=== PATIENT | female | born 1965 | race Hispanic/Latino ===

== ENCOUNTER 2016-10-23 11:44 | Emergency (ER) | payer MEDICARE ==
[2016-10-23 13:01] LABS: Bacteria,Urine 1+ /HPF (Negative); Bilirubin,Urine NEG (Negative); Blood,Urine NEG (Negative); Ketones,Urine NEG (Negative); Leukocyte Esterase,Urine NEG (Negative); Mucus,Urine FEW /HPF; Nitrite,Urine NEG (Negative); Protein,Urine <15 mg/dL mg/dL (Negative); Urobilinogen,Urine < 2.0 mg/dL (<2.0)
[2016-10-23 13:13] LABS: Anion Gap 19 mmol/L; BUN/Creatinine Ratio 21.42; Blood Urea Nitrogen 15 mg/dL (7-17); Calcium 9.6 mg/dL (8.4-10.2); Carbon Dioxide 26 mmol/L (22-30); Chloride 103.6 mmol/L (98-107); Glucose 93 mg/dL (65-100); Potassium 4.1 mmol/L (3.6-5.0); Sodium 144 mmol/L (137-145)
[2016-10-23 13:22] LABS: Basophils % (Auto) 0.6 % (0.0-1.8); Eosinophils % (Auto) 0.7 % (0.0-4.3); Hematocrit 49.6 % (30.3-42.9); Hemoglobin 16.1 gm/dl (10.1-14.3); Mean Corpuscular HGB Conc 33 % (30-34); Mean Corpuscular Hemoglobin 30 pg (28-32); Mean Corpuscular Volume 92 fl (79-97); Platelet Count 217 K/mm3 (140-440); Red Blood Count 5.39 M/mm3 (3.65-5.03); Red Cell Distribution Width 13.8 % (13.2-15.2); White Blood Count 9.4 K/mm3 (4.5-11.0)
[2016-10-23] MEDS ORDERED: PHENERGAN PR ONE (13:53)
[2016-10-23] MEDS ORDERED: ZOFRAN IV ONE (14:54)
[2016-10-23] MEDS ORDERED: VALIUM IV ONE (14:54)
[2016-10-23] MEDS ORDERED: NACL 0.9% 1000 ML 1,000 ML IV ONE (14:54)
--- NOTE | 2016-10-23 15:48 | Emergency Department Report ---
HPI - General Chief Complaint: Nausea/Vomiting/Diarrhea Time Seen by Provider: 10/23/16 14:44 - HPI HPI: The patient is a 51-year-old female who presents for evaluation of abdominal pain. The patient reports generalized abdominal pain since this morning at 9 AM. She states that her pain has been constant since onset, moderate to severe , cramping in quality, exacerbated with retching, and associated with nausea and multiple episodes of nonbilious, nonbloody emesis, and loose watery stools. The patient denies fever, chest pain, dyspnea, blood in the stool, dark tarry stool, dysuria, hematuria, flank pain, genital discharge, inability to pass flatus. ED Past Medical Hx - Past Medical History Previous Medical History?: Yes Hx of Cancer: Yes (breast) Hx Psychiatric Treatment: Yes (Anxiety, Panic attack, Self harm behavior, Multiple personalities, Hx.) Additional medical history: Judgement impaired, Schizophrenia, Bipolar, - Surgical History Past Surgical History?: Yes Hx Breast Surgery: Yes ([place] mastectomy) Additional Surgical History: Hysterectomy - Social History Smoking Status: Current Every Day Smoker Substance Use Type: Prescribed - Medications Home Medications: Home Medications Medication Instructions Recorded Confirmed Last Taken Type Acetaminophen [Tylenol] 325 mg PO Q6HR PRN 10/23/16 10/23/16 Unknown History Albuterol Sulfate [Ventolin HFA] 2 puff IH Q4H PRN 10/23/16 10/23/16 Unknown History Ativan INJ 1 mg PO Q8H PRN 10/23/16 10/23/16 Unknown History FLUoxetine [PROzac] 20 mg PO QDAY 10/23/16 10/23/16 Unknown History Haldol 5 mg IM PRN 10/23/16 Unknown History Haloperidol [Haldol] 5 mg PO Q8H PRN 10/23/16 10/23/16 Unknown History LORazepam [Ativan] 1 mg PO TID PRN 10/23/16 10/23/16 Unknown History Loperamide [Imodium] 4 mg PO ONCE PRN 10/23/16 10/23/16 Unknown History Losartan [Cozaar] 100 mg PO QDAY 10/23/16 10/23/16 Unknown History Magnesium Hydroxide [Milk of 400 mg PO 10/23/16 Unknown History Magnesia] Mylanta For Gi Distress 10/23/16 10/23/16 Unknown History Neomycin Velazquez/Bacitrac Zn/Poly 1 each TP 10/23/16 Unknown History [Neosporin Ointment Packet] OLANzapine [ZyPREXA] 2.5 mg PO QDAY 10/23/16 10/23/16 Unknown History Promethazine [Phenergan TAB] 10/23/16 Unknown History cloNIDine [Catapres] 0.1 mg PO BID 10/23/16 10/23/16 Unknown History hydrOXYzine PAMOATE [Vistaril] 50 mg PO Q8H PRN 10/23/16 10/23/16 Unknown History ED Review of Systems ROS: Stated complaint: HEADACHE/ABD PAIN/VOMITTING Other details as noted in HPI Constitutional: denies: fever ENT: denies: throat or neck pain Respiratory: denies: cough, shortness of breath Cardiovascular: denies: chest pain Endocrine: denies unexplained weight loss or gain Gastrointestinal: reports abdominal pain, nausea Genitourinary: denies: dysuria Musculoskeletal: denies: leg swelling Skin: denies: rash Neurological: denies: headache Hematological/Lymphatic: denies: easy bleeding or easy bruising Psych: denies sadness or hopelessness Physical Exam - Physical Exam Vital Signs: Vital Signs 10/23/16 10/23/16 12:21 13:22 Temperature 98.1 F Pulse Rate 85 Respiratory 20 18 Rate Blood Pressure 155/90 O2 Sat by Pulse 100 98 Oximetry Physical Exam: General: well-nourished, well-developed, no acute distress Head: Normocephalic, atraumatic Eyes: normal sclera ENT: Mucous membranes are pale and dry Neck: No neck stiffness, no cervical adenopathy Respiratory: Breath sounds equal bilaterally, no wheezing, rales, or rhonchi Cardio: S1 and S2 present, no murmurs, rubs, gallops, capillary refill is delayed Abdomen: Normoactive bowel sounds, soft abdomen, generalized tenderness to palpation present, no rigidity, no guarding or rebound tenderness Musc: No pitting edema Skin: No rash Neuro: no facial drooping, normal speech Psych: Normal affect ED Course Vital Signs 10/23/16 10/23/16 12:21 13:22 Temperature 98.1 F Pulse Rate 85 Respiratory 20 18 Rate Blood Pressure 155/90 O2 Sat by Pulse 100 98 Oximetry ED Medical Decision Making - Lab Data Result diagrams: 10/23/16 12:45 10/23/16 12:45 - Medical Decision Making The patient was seen and examined by myself. The patient is placed on a adjunct philosophy faculty and continuous pulse ox. On initial evaluation, the patient was found to be in no distress. Evaluation orders were placed. The patient is given 1 L normal saline fluid bolus for treatment of dehydration, and IV morphine for treatment of pain. Lab results reveal elevated RBC, hemoglobin, and hematocrit, consistent with hemoconcentration and exam findings of dehydration, and otherwise labs were grossly unremarkable. The patient was reevaluated and reported that their symptoms were markedly improved. The patient is stable for discharge with outpatient follow-up. The patient is given follow-up and return instructions. The patient expressed understanding and agreed with the plan. The patient is discharged in stable condition. Critical care attestation.: If time is entered above; I have spent that time in minutes in the direct care of this critically ill patient, excluding procedure time. ED Disposition Clinical Impression: Acute generalized abdominal pain, Dehydration Disposition: DC/TX PSY HOSP/PSY UNIT Is pt being admited?: No Does the pt Need Aspirin: No Condition: Stable Instructions: Acute Abdominal Pain (ED), Medical Clearance for Psychiatric Care (ED) Referrals: PRIMARY CAREMD [Primary Care Provider] - 3-5 Days Time of Disposition: 15:48
[2016-10-23 16:54] LABS: Alanine Aminotransferase 11 units/L (7-56); Albumin 4.2 g/dL (3.9-5); Albumin/Globulin Ratio 1.2 %; Alkaline Phosphatase 84 units/L (35-129); Bilirubin,Total 0.5 mg/dL (0.1-1.2); Lipase 30 units/L (13-60); Total Protein 7.7 g/dL (6.3-8.2)
[2016-10-23 17:15] LABS: Bilirubin,Direct < 0.2 mg/dL (0-0.2); Bilirubin,Indirect 0.3 mg/dL
[2016-10-23 18:39] VITALS: BP 134/92
== END 2016-10-23 18:49 ==
LOC: ED 11:44
DX: E86.0 Dehydration (principal); R10.84 Generalized abdominal pain; F41.9 Anxiety disorder, unspecified; F31.9 Bipolar disorder, unspecified; F20.9 Schizophrenia, unspecified; F17.200 Nicotine dependence, unspecified, uncomplicated; Z90.13 Acquired absence of bilateral breasts and nipples; Z85.3 Personal history of malignant neoplasm of breast
CPT/HCPCS: 36415; 80048; 80074; 81001; 83690; 85025; 96361; 96374; 96375; 99284; J2405; J3360; J7030